=== PATIENT | male | born 1990 | race Caucasian/White ===

== ENCOUNTER 2023-05-27 20:17 | Emergency (ER) | payer OTHER ==
[~2023-05-27] VITALS: Ht 175.3 cm; Wt 70.3 kg
[2023-05-27] MEDS ORDERED: FLUT16SP16 BNOSTRILS (21:06)
[2023-05-27 21:13] VITALS: BP 123/81; TEMP 98.3; O2SAT 99
== END 2023-05-27 21:13 | disposition home or self-care (01) ==
LOC: ER 20:20
DX: J33.9 Nasal polyp, unspecified (principal); Z79.899 Other long term (current) drug therapy; Z60.2 Problems related to living alone